=== PATIENT | male | born 1960 | race Caucasian/White ===

== ENCOUNTER 2019-11-07 07:50 | Inpatient (IN) | payer BC, OTHER ==
[~2019-11-07] VITALS: Ht 167.6 cm; Wt 77.7 kg
[2019-11-07 08:31] LABS: BASOPHILS # (AUTO) 0.03 x10^3/uL (0-0.1); BASOPHILS % (AUTO) 0 % (0-1); EOSINOPHILS % (AUTO) 1 % (1-7); LYMPHOCYTES # (AUTO) 1.53 x10^3/uL (1-3.4); LYMPHOCYTES % (AUTO) 19 % (22-44); MD NO; MEAN CORPUSCULAR HEMOGLOBIN 35.3 pg (27.5-34.5); MEAN CORPUSCULAR VOLUME 103.9 fL (81-97); MEAN PLATELET VOLUME 7.5 fL (7.4-10.4); MONOCYTES % (AUTO) 9 % (2-9); NEUTROPHILS # (AUTO) 5.63 x10^3/uL (1.8-6.8); NEUTROPHILS % (AUTO) 71 % (42-75); PLATELET COUNT 264 x10^3/uL (130-400); RED BLOOD COUNT 4.47 x10^6/uL (4.38-5.82); RED CELL DISTRIBUTION WIDTH 12.3 % (9.4-14.8)
--- NOTE | 2019-11-07 08:31 | NUR ---
SAMPLE MOUNTER: PT AMBULATORY WITH STEADY GAIT TO ROOM AT THIS TIME.
[2019-11-07 08:45] LABS: ALANINE AMINOTRANSFERASE 29 U/L (12-78); ALBUMIN 3.2 g/dL (3.4-5.0); ANION GAP 4 mmol/L (5-15); CALCIUM 8.4 mg/dL (8.5-10.1); CHLORIDE 108 mmol/L (98-107); CREATININE 1.11 mg/dL (0.7-1.3)
[2019-11-07 08:47] LABS: ALKALINE PHOSPHATASE 89 U/L (45-117); BILIRUBIN,TOTAL 0.4 mg/dL (0.2-1.0); TOTAL PROTEIN 7.2 g/dL (6.4-8.2)
--- NOTE | 2019-11-07 09:04 | NUR ---
REPORT RECEIVED FROM BETTY VALENZUELA, THIS RN ASSUMING CARE AT THIS TIME. PT PRESENTS TO ED WITH C/O GENERALIZED ABD PAIN X 11 DAYS, DENIES N/V/D, DENIES ANY OTHER SYMPTOMS. PT IS A&OX4, RESPS EVEN AND UNLABORED, NADN. PT INSTRUCTED TO PROVIDE CLEAN CATCH UA, UP TO BATHROOM WITH STEADY GAIT AT THIS TIME.
--- NOTE | 2019-11-07 09:08 | NUR ---
URINE SENT TO LAB.
[2019-11-07 09:22] LABS: MICROSCOPIC NOT IND
[2019-11-07 09:23] LABS: CULTURE INDICATED? NO
[2019-11-07] MEDS ORDERED: ONDANSETRON ODT 8 MG PO ONE (09:30)
[2019-11-07] MEDS ORDERED: FAMOTIDINE 20 MG TABLET PO ONE (09:30)
[2019-11-07] MEDS ORDERED: SODIUM CHLORIDE FLUSH 10ML SYR IVF ONE (10:00)
[2019-11-07] MEDS ORDERED: FAMOTIDINE 20 MG TABLET ONE (10:05)
[2019-11-07] MEDS ORDERED: OMNIPAQUE 350 MG/ML, 100ML BOTTLE ONE (10:34)
--- NOTE | 2019-11-07 10:44 | NUR ---
PT BACK FROM CT AT THIS TIME, NADN UPON RETURN.
--- NOTE | 2019-11-07 11:08 | NUR ---
pt resting on gudanyel, a&o, resps even and unlabored. nadn. awaiting ct results and dispo. report to break BETTY Verdin.
--- NOTE | 2019-11-07 11:30 | NUR ---
dr pablo spoke with dr zamudio
--- NOTE | 2019-11-07 11:41 | NUR ---
LUNCH RN: MD TO BEDSIDE TO UPDATE PT AND FAMILY ON POC
--- NOTE | 2019-11-07 11:45 | NUR ---
dr pablo spoke with dr saenz
[2019-11-07] MEDS ORDERED: LOSA25TA25 PO (11:49)
[2019-11-07] MEDS ORDERED: ATOR20TA86 PO (11:49)
[2019-11-07] MEDS ORDERED: APIX5TAB PO (11:49)
--- NOTE | 2019-11-07 11:49 | NUR ---
pt resting on gurney, resps even and unlabored, pt a&o. pt has been updated by MD with results and POC, pt to be admitted. med rec updated. pt reports 1/10 generalized abd pain. at bedside. awaiting oncology bed assignment at this time.
[2019-11-07] MEDS ORDERED: SODIUM CHLORIDE FLUSH 10ML SYR IVF PRN (12:00)
--- NOTE | 2019-11-07 12:27 | NUR ---
REPORT GIVEN TO RECEIVING BETTY COOK PT TO BE TRANSPORTED TO [facility] SHORTLY.
[2019-11-07 12:51] VITALS: BP 149/92
[2019-11-07] MEDS ORDERED: ACETAMINOPHEN 325 MG TABLET PO PRN (15:30)
[2019-11-07] MEDS ORDERED: POLYETHYLENE GLYCOL 17 GM PACKET PO PRN (15:30)
[2019-11-07] MEDS ORDERED: ONDANSETRON 2MG/ML, 2ML IVPush PRN (15:30)
[2019-11-07] MEDS ORDERED: hydrALAzine 20 MG/ML, 1ML IVPush PRN (15:30)
[2019-11-07] MEDS ORDERED: DOCUSATE 100 MG CAPSULE PO PRN (15:30)
[2019-11-07] MEDS ORDERED: OXYcodone IR 5MG TABLET PO PRN (15:30)
[2019-11-07] MEDS ORDERED: PROMETHAZINE 25 MG/ML, 1ML IM PRN (15:30)
[2019-11-07] MEDS ORDERED: morphine SULFATE 10 MG/ML, 1ML IVPush PRN (15:30)
[2019-11-07] MEDS ORDERED: ONDANSETRON ODT 4 MG PO PRN (15:30)
[2019-11-07] MEDS: SODIUM CHLORIDE 0.9% 1,000 ML IV SCH (15:34)
[2019-11-07 18:39] VITALS: BP 130/69
[2019-11-07] MEDS ORDERED: HEPARIN 5,000 UNITS/ML, 1ML SQ ONE (20:00)
[2019-11-07] MEDS: ATORVASTATIN 20 MG TABLET PO SCH (21:08)
[2019-11-08 00:20] VITALS: BP 155/53
[2019-11-08 05:11] LABS: BASOPHILS # (AUTO) 0.05 x10^3/uL (0-0.1); BASOPHILS % (AUTO) 1 % (0-1); EOSINOPHILS % (AUTO) 1 % (1-7); LYMPHOCYTES # (AUTO) 1.76 x10^3/uL (1-3.4); LYMPHOCYTES % (AUTO) 25 % (22-44); MD NO; MEAN CORPUSCULAR HEMOGLOBIN 35.4 pg (27.5-34.5); MEAN CORPUSCULAR HGB CONC 34.1 g/dL (33.2-36.2); MEAN CORPUSCULAR VOLUME 103.8 fL (81-97); MONOCYTES # (AUTO) 0.76 x10^3/uL (0.2-0.8); MONOCYTES % (AUTO) 11 % (2-9); NEUTROPHILS % (AUTO) 62 % (42-75); PLATELET COUNT 243 x10^3/uL (130-400); RED BLOOD COUNT 4.46 x10^6/uL (4.38-5.82); RED CELL DISTRIBUTION WIDTH 12.4 % (9.4-14.8)
[2019-11-08 05:25] LABS: CHLORIDE 110 mmol/L (98-107)
[2019-11-08 05:31] LABS: ALANINE AMINOTRANSFERASE 21 U/L (12-78); ALBUMIN 2.9 g/dL (3.4-5.0); ALKALINE PHOSPHATASE 85 U/L (45-117); ANION GAP 5 mmol/L (5-15); BILIRUBIN,TOTAL 0.6 mg/dL (0.2-1.0); CALCIUM 7.8 mg/dL (8.5-10.1); CHOL/HDL RATIO 3.2; CHOLESTEROL, TOTAL 119 mg/dL (140-239); HDL CHOL % 31 % (26-37); HDL CHOLESTEROL (DIRECT) 37 mg/dL (40-60); LDL CHOLESTEROL,CALCULATED 67 mg/dL (54-169); LDL/HDL RATIO 1.8 (0.5-3.0); TOTAL PROTEIN 6.6 g/dL (6.4-8.2); TRIGLYCERIDES 74 mg/dL (50-200); VLDL CHOLESTEROL 15 mg/dL (0-25)
[2019-11-08] MEDS: SODIUM CHLORIDE 0.9% 1,000 ML IV SCH (05:32)
[2019-11-08 08:00] VITALS: BP 164/93
[2019-11-08] MEDS: LOSARTAN 25MG TABLET PO SCH (12:11)
[2019-11-08 13:13] VITALS: BP 129/74
[2019-11-08] MEDS ORDERED: HEPARIN 5,000 UNITS/ML, 1ML IV ONE (16:00)
[2019-11-08 16:23] LABS: BASOPHILS # (AUTO) 0.06 x10^3/uL (0-0.1); BASOPHILS % (AUTO) 1 % (0-1); EOSINOPHILS # (AUTO) 0.04 x10^3/uL (0-0.4); EOSINOPHILS % (AUTO) 1 % (1-7); LYMPHOCYTES # (AUTO) 1.85 x10^3/uL (1-3.4); LYMPHOCYTES % (AUTO) 25 % (22-44); MD NO; MEAN CORPUSCULAR HEMOGLOBIN 34.8 pg (27.5-34.5); MEAN CORPUSCULAR HGB CONC 33.7 g/dL (33.2-36.2); MEAN CORPUSCULAR VOLUME 103.1 fL (81-97); MONOCYTES # (AUTO) 0.78 x10^3/uL (0.2-0.8); MONOCYTES % (AUTO) 10 % (2-9); NEUTROPHILS # (AUTO) 4.84 x10^3/uL (1.8-6.8); NEUTROPHILS % (AUTO) 64 % (42-75); PLATELET COUNT 277 x10^3/uL (130-400); RED BLOOD COUNT 4.88 x10^6/uL (4.38-5.82); RED CELL DISTRIBUTION WIDTH 12.9 % (9.4-14.8)
[2019-11-08] MEDS ORDERED: GOLYTELY 4,000ML ORAL.SOL PO ONE (18:00)
[2019-11-08] MEDS: HEPARIN 25,000 UNITS/250ML PMX 250 ML IV PRN (18:26)
[2019-11-08 18:45] VITALS: BP 128/76
[2019-11-08] MEDS: ATORVASTATIN 20 MG TABLET PO SCH (21:00)
[2019-11-09 02:25] VITALS: BP 132/75
[2019-11-09 07:36] VITALS: BP 166/93
[2019-11-09] MEDS: LOSARTAN 25MG TABLET PO SCH (07:48)
[2019-11-09] MEDS ORDERED: FENTANYL PF 100 MCG/2ML IV PRN (08:30)
[2019-11-09] MEDS ORDERED: ALBUTEROL SULFATE 2.5 MG/3 ML NPPB PRN (08:30)
[2019-11-09] MEDS ORDERED: HALOPERIDOL 5 MG/ML IV PRN (08:30)
[2019-11-09] MEDS ORDERED: OXYcodone 5 MG/5 ML ORAL.SOL UDC PO PRN (08:30)
[2019-11-09] MEDS ORDERED: MIDAZOLAM 1 MG/ML, 2ML IV PRN (08:30)
[2019-11-09] MEDS ORDERED: DIAZEPAM 5 MG/ML, 2ML IVPush PRN (08:30)
[2019-11-09] MEDS ORDERED: EPHEDRINE 50 MG/ML, 1ML IVPush PRN (08:30)
[2019-11-09] MEDS ORDERED: PROMETHAZINE 25 MG/ML, 1ML IV PRN (08:30)
[2019-11-09] MEDS ORDERED: ONDANSETRON 2MG/ML, 2ML IV PRN (08:30)
[2019-11-09] MEDS ORDERED: LABETALOL 5MG/ML, 20ML IV PRN (08:30)
[2019-11-09] MEDS ORDERED: hydrALAzine 20 MG/ML, 1ML IV PRN (08:30)
[2019-11-09] MEDS ORDERED: ONDANSETRON ODT 8 MG PO PRN (08:30)
[2019-11-09] MEDS ORDERED: MEPERIDINE/PF 25MG/ML,1ML IVPush PRN (08:30)
[2019-11-09] MEDS ORDERED: CALCIUM GLUCONATE 4.6 MEQ in SODIUM CHLORIDE 0.9% 100 ML IV ONE (08:30)
[2019-11-09] MEDS ORDERED: PROMETHAZINE 12.5 MG SUPP PR PRN (08:30)
[2019-11-09] MEDS ORDERED: HYDROmorphone 2 MG/ML, 1ML IVPush PRN (08:30)
[2019-11-09] MEDS ORDERED: PROPOFOL 10 MG/ML, 20ML ONE (08:32)
[2019-11-09] MEDS: HEPARIN 5,000 UNITS/ML, 1ML IV PRN ×2 (12:15→18:36)
[2019-11-09 13:03] VITALS: BP 147/77
[2019-11-09] MEDS: CHOLECALCIFEROL 400 UNITS/ML ORAL SOL PO SCH (18:22)
[2019-11-09 19:48] VITALS: BP 130/80
[2019-11-09] MEDS: ATORVASTATIN 20 MG TABLET PO SCH (20:04)
[2019-11-10] MEDS: HEPARIN 5,000 UNITS/ML, 1ML IV PRN ×3 (01:15→23:37)
[2019-11-10 01:48] VITALS: BP 124/74
[2019-11-10 06:32] LABS: BASOPHILS # (AUTO) 0.05 x10^3/uL (0-0.1); BASOPHILS % (AUTO) 1 % (0-1); EOSINOPHILS # (AUTO) 0.08 x10^3/uL (0-0.4); EOSINOPHILS % (AUTO) 1 % (1-7); LYMPHOCYTES # (AUTO) 1.86 x10^3/uL (1-3.4); LYMPHOCYTES % (AUTO) 25 % (22-44); MD NO; MEAN CORPUSCULAR HEMOGLOBIN 35.5 pg (27.5-34.5); MEAN CORPUSCULAR HGB CONC 34.1 g/dL (33.2-36.2); MEAN CORPUSCULAR VOLUME 104.1 fL (81-97); MEAN PLATELET VOLUME 7.7 fL (7.4-10.4); MONOCYTES # (AUTO) 0.71 x10^3/uL (0.2-0.8); MONOCYTES % (AUTO) 10 % (2-9); NEUTROPHILS # (AUTO) 4.74 x10^3/uL (1.8-6.8); NEUTROPHILS % (AUTO) 64 % (42-75); PLATELET COUNT 244 x10^3/uL (130-400); RED BLOOD COUNT 4.41 x10^6/uL (4.38-5.82); RED CELL DISTRIBUTION WIDTH 12.6 % (9.4-14.8)
[2019-11-10 06:42] LABS: ALBUMIN 3.2 g/dL (3.4-5.0); ANION GAP 3 mmol/L (5-15); CALCIUM 8.2 mg/dL (8.5-10.1); CHLORIDE 109 mmol/L (98-107); CREATININE 0.89 mg/dL (0.7-1.3)
[2019-11-10 07:40] VITALS: BP 127/77
[2019-11-10] MEDS: HEPARIN 25,000 UNITS/250ML PMX 250 ML IV PRN (08:24)
[2019-11-10] MEDS: LOSARTAN 25MG TABLET PO SCH (08:24)
[2019-11-10] MEDS ORDERED: CALCIUM GLUCONATE 4.6 MEQ in SODIUM CHLORIDE 0.9% 100 ML IV ONE (09:00)
[2019-11-10 13:16] VITALS: BP 132/75
[2019-11-10] MEDS: CHOLECALCIFEROL 400 UNITS/ML ORAL SOL PO SCH (18:43)
[2019-11-10 19:09] VITALS: BP 145/93
[2019-11-10] MEDS: ATORVASTATIN 20 MG TABLET PO SCH (21:06)
[2019-11-10] MEDS ORDERED: OMNIPAQUE 350 MG/ML, 75ML BOTTLE ONE (22:07)
[2019-11-11 02:05] VITALS: BP 102/64
[2019-11-11] MEDS: HEPARIN 25,000 UNITS/250ML PMX 250 ML IV PRN (05:16)
[2019-11-11 08:30] VITALS: BP 131/89
[2019-11-11] MEDS: LOSARTAN 25MG TABLET PO SCH (08:38)
[2019-11-11 12:54] VITALS: BP 120/72
[2019-11-11] MEDS: NEOMYCIN SULFATE 500 MG TABLET PO SCH ×2 (13:07→14:05)
[2019-11-11] MEDS: metroNIDAZOLE 500 MG TABLET PO SCH ×2 (13:07→14:05)
[2019-11-11 18:41] VITALS: BP 109/70
[2019-11-11] MEDS: ATORVASTATIN 20 MG TABLET PO SCH (21:26)
[2019-11-11] MEDS: CHOLECALCIFEROL 400 UNITS TABLET PO SCH (21:26)
[2019-11-11] MEDS ORDERED: metroNIDAZOLE 500 MG TABLET PO ONE (23:00)
[2019-11-11] MEDS ORDERED: NEOMYCIN SULFATE 500 MG TABLET PO ONE (23:00)
[2019-11-12 01:21] VITALS: BP 100/59
[2019-11-12] MEDS: HEPARIN 25,000 UNITS/250ML PMX 250 ML IV PRN (03:18)
[2019-11-12 08:27] VITALS: BP 106/63
[2019-11-12] MEDS: LOSARTAN 25MG TABLET PO SCH (08:35)
[2019-11-12 12:20] LABS: ALBUMIN 3.2 g/dL (3.4-5.0); BILIRUBIN, DIRECT 0.2 mg/dL (0.1-0.2)
[2019-11-12 12:22] LABS: BILIRUBIN,INDIRECT 0.4 mg/dL (0.0-2.0); BILIRUBIN,TOTAL 0.6 mg/dL (0.2-1.0); TOTAL PROTEIN 6.9 g/dL (6.4-8.2)
[2019-11-12 14:00] VITALS: BP 139/79
[2019-11-12 18:29] VITALS: BP 140/73
[2019-11-12] MEDS: CHOLECALCIFEROL 400 UNITS TABLET PO SCH (20:09)
[2019-11-12] MEDS: ATORVASTATIN 20 MG TABLET PO SCH (20:09)
[2019-11-13] MEDS: HEPARIN 25,000 UNITS/250ML PMX 250 ML IV PRN (00:17)
[2019-11-13 01:49] VITALS: BP 107/66
[2019-11-13] MEDS: HEPARIN 5,000 UNITS/ML, 1ML IV PRN (06:26)
[2019-11-13 06:54] VITALS: BP 142/91
[2019-11-13] MEDS: LOSARTAN 25MG TABLET PO SCH (09:12)
[2019-11-13] MEDS ORDERED: FENTANYL PF 100 MCG/2ML ONE (09:17)
[2019-11-13] MEDS ORDERED: MIDAZOLAM 1 MG/ML, 5ML ONE (09:17)
[2019-11-13] MEDS ORDERED: FLUMAZENIL 0.1 MG/1 ML, 5ML ONE (09:17)
[2019-11-13] MEDS ORDERED: NALOXONE 1 MG/ML, 2ML ONE (09:18)
[2019-11-13] MEDS ORDERED: APIXABAN 5 MG TABLET PO SCH (12:00)
[2019-11-13 13:45] VITALS: BP 107/70
== END 2019-11-13 16:12 | disposition home or self-care (01) | DRG 841 ==
LOC: ED 09:31 → EDIP 11:59 → 4NW 12:40 → ED 12:52 → 4NW 12:53 → DCLOUNGE 11-13 16:00
PROVIDERS: ADMIT Internal Medicine; ATTEND Family Medicine
PROC: 0DBC8ZX Excision of Ileocecal Valve, Via Natural or Artificial Opening Endoscopic, Diagnostic (ICD-10-PCS; 2019-11-09)
PROC: 07DR3ZX Extraction of Iliac Bone Marrow, Percutaneous Approach, Diagnostic (ICD-10-PCS; principal; 2019-11-13)
DX: C83.33 Diffuse large B-cell lymphoma, intra-abdominal lymph nodes (principal); C18.9 Malignant neoplasm of colon, unspecified; D68.69 Other thrombophilia; D75.89 Other specified diseases of blood and blood-forming organs; E78.5 Hyperlipidemia, unspecified; I10 Essential (primary) hypertension; K52.9 Noninfective gastroenteritis and colitis, unspecified; K64.8 Other hemorrhoids; L98.9 Disorder of the skin and subcutaneous tissue, unspecified; Z79.01 Long term (current) use of anticoagulants; Z86.711 Personal history of pulmonary embolism; Z86.718 Personal history of other venous thrombosis and embolism
CPT/HCPCS: 36415; 38222; 71260; 74021; 74177; 77012; 78306; 80053; 80061; 80069; 80076; 81003; 82306; 82378; 82607; 83036; 83615; 83690; 83735; 84439; 84443; 85025; 85060; 85097; 85520; 88237; 88264; 88280; 88305; 88311; 88313; 88341; 88342; 88360; 93005; 99156; 99157; 99285; G0378; J0610; J1644; J2250; J2704; J3010; Q9967; A9503; J2310; J7030

== ENCOUNTER → 2019-11-25 | Outpatient (CLI) | payer OTHER ==
[~2019-11-25] MED LIST: APIX5TAB PO; ATOR20TA86 PO; LOSA25TA25 PO
== END | disposition home or self-care (01) ==
LOC: PETCFH 13:27
PROVIDERS: ATTEND Radiology Radiation Oncology
DX: C83.39 Diffuse large B-cell lymphoma, extranodal and solid organ sites (principal)
CPT/HCPCS: 78815; A9552

== ENCOUNTER 2019-11-27 06:36 | Outpatient (CLI) | payer OTHER | END 2019-11-27 23:59 | disposition home or self-care (01) | LOC: CFH 06:36 | PROVIDERS: ATTEND Internal Medicine Hematology & Oncology | DX: I08.8 Other rheumatic multiple valve diseases (principal); C83.39 Diffuse large B-cell lymphoma, extranodal and solid organ sites; I10 Essential (primary) hypertension; E78.5 Hyperlipidemia, unspecified | CPT/HCPCS: 93306 ==

== ENCOUNTER 2019-12-02 08:33 | Day surgery (SDC) | payer OTHER ==
[~2019-12-02] VITALS: Ht 167.6 cm; Wt 78.4 kg
[2019-12-02 09:14] VITALS: BP 121/85
[2019-12-02] MEDS ORDERED: ELIQUIS PO (09:23)
[2019-12-02] MEDS ORDERED: SODIUM CHLORIDE 0.9% 1,000 ML IV SCH (09:30)
[2019-12-02] MEDS ORDERED: FENTANYL PF 100 MCG/2ML ONE (10:13)
[2019-12-02] MEDS ORDERED: NALOXONE 1 MG/ML, 2ML ONE (10:13)
[2019-12-02] MEDS ORDERED: LIDOCAINE 1%, 20ML ONE (10:37)
[2019-12-02] MEDS ORDERED: CEFAZOLIN PMX 1GM/50ML 50 ML ONE (10:51)
[2019-12-02] MEDS ORDERED: LIDOCAINE 1%, 10ML ONE (11:22)
== END 2019-12-02 13:20 | disposition home or self-care (01) ==
LOC: OUT 08:33
PROVIDERS: ATTEND Internal Medicine Hematology & Oncology
DX: C83.39 Diffuse large B-cell lymphoma, extranodal and solid organ sites (principal); I10 Essential (primary) hypertension; Z79.01 Long term (current) use of anticoagulants; Z79.899 Other long term (current) drug therapy; Z88.8 Allergy status to other drugs, medicaments and biological substances
CPT/HCPCS: 36561; 76937; 77001; 99156; 99157; C1788; J0690; J1642; J3010; J7030; J2310

== ENCOUNTER 2020-04-21 07:06 | Day surgery (SDC) | payer OTHER ==
[~2020-04-21] VITALS: Ht 167.6 cm; Wt 79.4 kg
[~2020-04-21 07:06] MED LIST changes: +ELIQUIS PO
[2020-04-21 07:28] VITALS: BP 131/79
[2020-04-21] MEDS ORDERED: SODIUM CHLORIDE 0.9% 1,000 ML IV SCH (07:30)
[2020-04-21] MEDS ORDERED: ATOR20TA37 PO (07:54)
[2020-04-21] MEDS ORDERED: LIDOCAINE 1%, 20ML ONE (09:29)
== END 2020-04-21 11:10 | disposition home or self-care (01) ==
LOC: OUT 07:06
PROVIDERS: ATTEND Internal Medicine Hematology & Oncology
DX: C83.89 Other non-follicular lymphoma, extranodal and solid organ sites (principal); I10 Essential (primary) hypertension; Z88.8 Allergy status to other drugs, medicaments and biological substances; Z79.01 Long term (current) use of anticoagulants; Z79.899 Other long term (current) drug therapy; Z82.49 Family history of ischemic heart disease and other diseases of the circulatory system
CPT/HCPCS: 36590; J7030; 77001

== ENCOUNTER → 2020-11-10 | Outpatient (CLI) | payer OTHER ==
[~2020-11-10] MED LIST changes: +ATOR20TA37 PO
== END | disposition home or self-care (01) ==
LOC: RAD 09:50
PROVIDERS: ATTEND Internal Medicine Hematology & Oncology
DX: C83.39 Diffuse large B-cell lymphoma, extranodal and solid organ sites (principal); H83.8X2 Other specified diseases of left inner ear
CPT/HCPCS: 76536